=== PATIENT | female | born 1970 | race Caucasian/White ===

== ENCOUNTER 2023-10-23 18:20 | Emergency (ER) | payer SELFPAY ==
[2023-10-23] MEDS ORDERED: Acetaminophen 325 MG TAB ONE (19:00)
[2023-10-23] MEDS ORDERED: Ibuprofen 200 MG TAB ONE (19:00)
== END 2023-10-23 20:32 | disposition home or self-care (01) ==
LOC: ERS 18:20
DX: S63.501A Unspecified sprain of right wrist, initial encounter (principal); F17.210 Nicotine dependence, cigarettes, uncomplicated; Y04.8XXA Assault by other bodily force, initial encounter